=== PATIENT | male | born 1985 ===

== ENCOUNTER 2018-12-07 17:11 | Outpatient (CLI) | payer OTHER | END 2018-12-07 17:12 | disposition home or self-care (01) | LOC: C.RADH 17:11 | DX: Z01.818 Encounter for other preprocedural examination (principal) ==

== ENCOUNTER 2018-12-10 12:33 | Outpatient (CLI) | payer OTHER | END 2018-12-10 12:34 | disposition home or self-care (01) | LOC: C.CARD 12:33 | DX: Z01.818 Encounter for other preprocedural examination (principal) ==